=== PATIENT | male | born 1980 | race Caucasian/White ===

== ENCOUNTER 2019-06-22 20:23 | Inpatient (IN) | payer MEDICAID ==
[~2019-06-22] VITALS: Ht 177.8 cm; Wt 83.0 kg
[~2019-06-22 20:23] MED LIST: GABA-531 PO; LEVE500T53 PO
[2019-06-22] MEDS ORDERED: LAMO25TA25 PO (20:57)
[2019-06-22] MEDS ORDERED: MIRT30 PO (20:57)
[2019-06-22] MEDS ORDERED: FLUO-191 PO (20:57)
[2019-06-22 21:31] LABS: BASOPHILS % (AUTO) 0.4 % (0.0-2.0); EOSINOPHILS % (AUTO) 1.4 % (1.0-6.0); HEMATOCRIT 43.8 % (41-53); HEMOGLOBIN 15.5 g/dL (13.5-17.5); LYMPHOCYTES # (AUTO) 2.1 K/uL (1.0-4.8); LYMPHOCYTES % (AUTO) 22.9 % (22.0-44.0); MEAN CORPUSCULAR HEMOGLOBIN 30.5 pg (26.0-34.0); MEAN CORPUSCULAR HGB CONC 35.4 G/dL (31.0-37.0); MEAN CORPUSCULAR VOLUME 86 fL (80-100); MONOCYTES # (AUTO) 0.9 K/uL (0.1-1.0); MONOCYTES % (AUTO) 9.7 % (2.0-9.0); NEUTROPHILS % (AUTO) 65.6 % (40.0-70.0); PLATELET COUNT (AUTO) 337 K/uL (150-450); RED BLOOD CELL COUNT(AUTO) 5.09 MIL/uL (4.50-5.90)
[2019-06-22 21:45] LABS: ANION GAP 13 mmol/L (8-16); CALCIUM, TOTAL 9.7 mg/dL (8.8-10.5); CARBON DIOXIDE 23 mmol/L (22-29); CHLORIDE 105 mmol/L (98-107); CREATININE 1.09 mg/dL (0.60-1.30); GLOMERULAR FILTR. RATE CALC > 60 mL/min (>60); GLUCOSE,RANDOM 127 mg/dL (70-110); POTASSIUM 3.5 mmol/L (3.5-5.1); SODIUM SERUM 141 mmol/L (136-145); UREA NITROGEN, BLOOD 18 mg/dL (7-18)
[2019-06-22 21:50] LABS: ALANINE AMINOTRANSFERASE 31 U/L (12-78); ALBUMIN 4.4 g/dL (3.4-5.0); ALKALINE PHOSPHATASE 115 U/L (46-116); ASPARTATE AMINOTRANSFERASE 27 U/L (15-37); BILIRUBIN,TOTAL 0.7 mg/dL (0.1-1.0); TOTAL PROTEIN, SERUM 7.8 g/dL (6.4-8.2)
[2019-06-22 22:53] LABS: AMPHET/METH SCREEN,URINE POSITIVE (NEGATIVE); BARBITURATE SCREEN, URINE NEGATIVE (NEGATIVE); BENZODIAZEPINES SCREEN,URINE NEGATIVE (NEGATIVE); CANNABINOID SCREEN,URINE NEGATIVE (NEGATIVE); COCAINE SCREEN,URINE NEGATIVE (NEGATIVE); METHADONE SCREEN, URINE NEGATIVE (NEGATIVE); OPIATE SCREEN,URINE NEGATIVE (NEGATIVE)
[2019-06-22 22:55] LABS: PHENCYCLIDINE SCREEN,URINE NEGATIVE (NEGATIVE)
[2019-06-22 23:02] LABS: LITHIUM < 0.20 mmol/L (0.60-1.20)
[2019-06-23] MEDS ORDERED: HALOPERIDOL 5 MG TABLET PO PRN (00:30)
[2019-06-23] MEDS ORDERED: ZOLPIDEM TARTRATE 10 MG TABLET PO PRN (00:30)
[2019-06-23 01:54] VITALS: BP 137/87
[2019-06-23] MEDS ORDERED: PNEUMOCOCCAL VACCINE POLYVALENT 0.5 ML VIAL [PPSV23] IM ONE (03:45)
[2019-06-23] MEDS ORDERED: INFLUENZA VIRUS VACCINE QVS 2019-20 (3YR+)/PF 60 MCG/0.5 ML SYRINGE IM ONE (03:45)
[2019-06-23 08:40] VITALS: BP 106/71
[2019-06-23] MEDS: ARIPiprazole 15 MG TABLET PO SCH (10:48)
[2019-06-23] MEDS: LITHIUM CARBONATE 300 MG CAPSULE PO SCH ×2 (10:48→16:28)
[2019-06-23] MEDS: FLUoxetine HCL 20 MG CAPSULE PO SCH (10:49)
[2019-06-23] MEDS: MIRTAZAPINE 30 MG TABLET PO SCH (10:49)
[2019-06-23] MEDS ORDERED: GuaiFENesin/D-METHORPHAN [SUGAR-FREE] 200-20MG/10 ML SYRUP UDCUP PO PRN (15:45)
[2019-06-23] MEDS ORDERED: ALBUTEROL SULFATE HFA 90 MCG/PUFF 8 GM INHALER IH PRN (15:45)
[2019-06-23] MEDS ORDERED: DOCUSATE SODIUM 100 MG CAPSULE PO PRN (15:45)
[2019-06-23] MEDS ORDERED: ONDANSETRON HCL 4 MG TABLET PO PRN (15:45)
[2019-06-23] MEDS ORDERED: ACETAMINOPHEN 325 MG TABLET PO PRN (15:45)
[2019-06-23] MEDS ORDERED: MAGNESIUM HYDROXIDE SUSPENSION 30 ML UDCUP PO PRN (15:45)
[2019-06-23] MEDS ORDERED: LOPERAMIDE HCL 2 MG CAPSULE PO PRN (15:45)
[2019-06-23] MEDS ORDERED: PETROLATUM,WHITE 28 GM JELLY TP PRN (15:45)
[2019-06-23] MEDS ORDERED: CloNIDine HCL 0.1 MG TABLET PO PRN (15:45)
[2019-06-23] MEDS ORDERED: MAG HYDROX/AL HYDROX/SIMETH ES 30 ML SUSPENSION UDCUP PO PRN (15:45)
[2019-06-23] MEDS ORDERED: NICOTINE 14 MG/24 HOUR PATCH TD PRN (15:45)
[2019-06-23] MEDS ORDERED: IBUPROFEN 400 MG TABLET PO PRN (15:45)
[2019-06-23 16:12] VITALS: BP 102/61
[2019-06-23] MEDS: LORazepam 2 MG TABLET PO PRN (16:28)
[2019-06-23] MEDS: NICOTINE POLACRILEX 2 MG LOZENGE PO PRN (16:33)
[2019-06-24 06:43] VITALS: BP 111/58
[2019-06-24 08:24] VITALS: BP 116/72
[2019-06-24] MEDS: MIRTAZAPINE 30 MG TABLET PO SCH (08:39)
[2019-06-24] MEDS: LITHIUM CARBONATE 300 MG CAPSULE PO SCH ×2 (08:39→16:27)
[2019-06-24] MEDS: ARIPiprazole 15 MG TABLET PO SCH (08:39)
[2019-06-24] MEDS: FLUoxetine HCL 20 MG CAPSULE PO SCH (08:39)
[2019-06-24 09:49] LABS: CHOL/HDL RATIO 5.3 (4.2-7.3)
[2019-06-24 16:20] VITALS: BP 129/52
[2019-06-24] MEDS: LORazepam 2 MG TABLET PO PRN (16:27)
[2019-06-24] MEDS: NICOTINE POLACRILEX 2 MG LOZENGE PO PRN (16:28)
[2019-06-25 06:36] VITALS: BP 126/75
[2019-06-25 08:36] VITALS: BP 129/73
[2019-06-25] MEDS: FLUoxetine HCL 20 MG CAPSULE PO SCH (08:57)
[2019-06-25] MEDS: ARIPiprazole 15 MG TABLET PO SCH (08:57)
[2019-06-25] MEDS: NICOTINE POLACRILEX 2 MG LOZENGE PO PRN ×2 (08:57→17:43)
[2019-06-25] MEDS: LITHIUM CARBONATE 300 MG CAPSULE PO SCH ×2 (08:57→17:43)
[2019-06-25] MEDS: MIRTAZAPINE 30 MG TABLET PO SCH (08:57)
[2019-06-25 16:48] VITALS: BP 112/65
[2019-06-25] MEDS: LORazepam 2 MG TABLET PO PRN (17:43)
[2019-06-26 05:58] VITALS: BP 136/73
[2019-06-26] MEDS: MIRTAZAPINE 30 MG TABLET PO SCH (09:00)
[2019-06-26] MEDS: FLUoxetine HCL 20 MG CAPSULE PO SCH (09:36)
[2019-06-26] MEDS: LITHIUM CARBONATE 300 MG CAPSULE PO SCH ×2 (09:36→16:53)
[2019-06-26] MEDS: ARIPiprazole 15 MG TABLET PO SCH (09:36)
[2019-06-26] MEDS: NICOTINE POLACRILEX 2 MG LOZENGE PO PRN ×2 (09:42→21:32)
[2019-06-26 13:38] VITALS: BP 122/72
[2019-06-26] MEDS: LORazepam 2 MG TABLET PO PRN (13:46)
[2019-06-26 16:22] VITALS: BP 110/64
[2019-06-27 06:10] VITALS: BP 117/77
[2019-06-27 08:00] VITALS: BP 118/75
[2019-06-27] MEDS: FLUoxetine HCL 20 MG CAPSULE PO SCH (09:27)
[2019-06-27] MEDS: MIRTAZAPINE 30 MG TABLET PO SCH (09:28)
[2019-06-27] MEDS: LITHIUM CARBONATE 300 MG CAPSULE PO SCH ×2 (09:28→16:19)
[2019-06-27] MEDS: ARIPiprazole 15 MG TABLET PO SCH (09:28)
[2019-06-27] MEDS: LORazepam 2 MG TABLET PO PRN (14:21)
[2019-06-27] MEDS: NICOTINE POLACRILEX 2 MG LOZENGE PO PRN (14:22)
[2019-06-27 16:00] VITALS: BP 113/70
[2019-06-28 01:09] VITALS: BP 126/76
[2019-06-28 08:01] VITALS: BP 123/77
[2019-06-28] MEDS: ARIPiprazole 15 MG TABLET PO SCH (09:25)
[2019-06-28] MEDS: LITHIUM CARBONATE 300 MG CAPSULE PO SCH ×2 (09:25→17:16)
[2019-06-28] MEDS: FLUoxetine HCL 20 MG CAPSULE PO SCH (09:25)
[2019-06-28] MEDS: NICOTINE POLACRILEX 2 MG LOZENGE PO PRN ×2 (09:45→17:40)
[2019-06-28] MEDS: LORazepam 2 MG TABLET PO PRN (09:48)
[2019-06-28] MEDS ORDERED: LITH300C3 PO (17:33)
[2019-06-28] MEDS ORDERED: ARIP15TA2 PO (17:33)
== END 2019-06-28 18:00 | disposition home or self-care (01) | DRG 750 ==
LOC: EMS 20:24 → B3A 06-23 00:30
PROVIDERS: ADMIT Psychiatry & Neurology Psychiatry; ATTEND Psychiatry & Neurology Psychiatry
DX: F25.0 Schizoaffective disorder, bipolar type (principal); G40.909 Epilepsy, unspecified, not intractable, without status epilepticus; R45.851 Suicidal ideations; F41.0 Panic disorder [episodic paroxysmal anxiety]; I10 Essential (primary) hypertension; Z87.891 Personal history of nicotine dependence; Z91.14 Patient's other noncompliance with medication regimen; Z79.899 Other long term (current) drug therapy
CPT/HCPCS: G0480

== ENCOUNTER 2022-02-08 20:00 | Inpatient (IN) | payer MEDICAID ==
[~2022-02-08] VITALS: Ht 177.8 cm; Wt 97.0 kg
[~2022-02-08 20:00] MED LIST changes: +ARIP15TA27 PO; +FLUO-177 PO; -GABA-531 PO; -LEVE500T53 PO; +LITH300C3 PO; +MIRT30 PO
[2022-02-08 21:37] LABS: BASOPHILS % (AUTO) 0.3 % (0.0-2.0); EOSINOPHILS % (AUTO) 1.6 % (1.0-6.0); HEMOGLOBIN 12.2 g/dL (13.5-17.5); LYMPHOCYTES # (AUTO) 1.3 K/uL (1.0-4.8); LYMPHOCYTES % (AUTO) 16.2 % (22.0-44.0); MEAN CORPUSCULAR HEMOGLOBIN 29.9 pg (26.0-34.0); MEAN CORPUSCULAR HGB CONC 33.8 G/dL (31.0-37.0); MEAN CORPUSCULAR VOLUME 88 fL (80-100); MONOCYTES # (AUTO) 1.2 K/uL (0.1-1.0); NEUTROPHILS # (AUTO) 5.6 K/uL (1.8-7.7); NEUTROPHILS % (AUTO) 66.9 % (40.0-70.0); PLATELET COUNT (AUTO) 257 K/uL (150-450); RED BLOOD CELL COUNT(AUTO) 4.08 MIL/uL (4.50-5.90); RED CELL DISTRIBUTION WIDTH 13.1 % (11.5-14.5)
[2022-02-08 21:53] LABS: ALANINE AMINOTRANSFERASE 83 U/L (12-78); ALBUMIN 3.4 g/dL (3.4-5.0); ALKALINE PHOSPHATASE 92 U/L (46-116); ANION GAP 6 mmol/L (8-16); ASPARTATE AMINOTRANSFERASE 71 U/L (15-37); BILIRUBIN,TOTAL 0.9 mg/dL (0.1-1.0); CALCIUM, TOTAL 8.5 mg/dL (8.8-10.5); CARBON DIOXIDE 28 mmol/L (22-29); CHLORIDE 100 mmol/L (98-107); CREATININE 1.17 mg/dL (0.60-1.30); GLUCOSE,RANDOM 135 mg/dL (70-110); SODIUM SERUM 134 mmol/L (136-145); TOTAL PROTEIN, SERUM 6.6 g/dL (6.4-8.2); UREA NITROGEN, BLOOD 17 mg/dL (7-18)
[2022-02-08 21:54] LABS: GLOMERULAR FILTR. RATE CALC > 60 mL/min (>60); POTASSIUM 2.9 mmol/L (3.5-5.1)
[2022-02-08] MEDS ORDERED: POTASSIUM CHLORIDE 10% 40 MEQ/30 ML LIQUID UDCUP PO ONE ×2 (22:00→22:40)
[2022-02-08] MEDS ORDERED: LORazepam 2 MG TABLET PO PRN (22:45)
[2022-02-08] MEDS ORDERED: ZOLPIDEM TARTRATE 10 MG TABLET PO PRN (22:45)
[2022-02-08] MEDS ORDERED: HALOPERIDOL 5 MG TABLET PO PRN (22:45)
[2022-02-09 00:11] LABS: COVID AG,FIA SOURCE NASOPHARYNGEAL
[2022-02-09 08:28] LABS: APPEARANCE,URINE CLEAR (CLEAR); BILIRUBIN,URINE NEGATIVE (NEGATIVE); GLUCOSE, URINE (UA) NEGATIVE (NEGATIVE); LEUKOCYTE ESTERASE ,URINE NEGATIVE (NEGATIVE); NITRATE,URINE NEGATIVE (NEGATIVE); OCCULT BLOOD,URINE NEGATIVE (NEGATIVE); SPECIFIC GRAVITIY, URINE 1.032 (1.003-1.030)
[2022-02-09 08:33] LABS: AMPHET/METH SCREEN,URINE POSITIVE (NEGATIVE); BARBITURATE SCREEN, URINE NEGATIVE (NEGATIVE); BENZODIAZEPINES SCREEN,URINE NEGATIVE (NEGATIVE); CANNABINOID SCREEN,URINE NEGATIVE (NEGATIVE); COCAINE SCREEN,URINE NEGATIVE (NEGATIVE); METHADONE SCREEN, URINE NEGATIVE (NEGATIVE); OPIATE SCREEN,URINE NEGATIVE (NEGATIVE)
[2022-02-09 08:34] LABS: PHENCYCLIDINE SCREEN,URINE NEGATIVE (NEGATIVE)
[2022-02-09 09:08] LABS: PROTEIN,URINE NEGATIVE (NEGATIVE)
[2022-02-09 22:47] VITALS: BP 110/68
[2022-02-10 07:05] LABS: HEMOGLOBIN A1C 5.3 % (3.8-5.6)
[2022-02-10 07:15] LABS: CHOL/HDL RATIO 4.6 (4.2-7.3); FREE T4 (FREE THYROXINE) 0.96 ng/dL (0.76-1.46); POTASSIUM 3.7 mmol/L (3.5-5.1); THYROID STIMULATING HORMONE 1.63 uIU/mL (0.36-3.74)
[2022-02-10 08:52] VITALS: BP 114/66
[2022-02-10] MEDS: BACITRACIN 28 GM OINTMENT TP SCH ×2 (09:00→16:32)
[2022-02-10] MEDS ORDERED: NICOTINE 14 MG/24 HOUR PATCH TD PRN (09:15)
[2022-02-10] MEDS ORDERED: ONDANSETRON HCL 4 MG TABLET PO PRN (09:15)
[2022-02-10] MEDS ORDERED: GuaiFENesin/D-METHORPHAN [SUGAR-FREE] 200-20MG/10 ML SYRUP UDCUP PO PRN (09:15)
[2022-02-10] MEDS ORDERED: ALBUTEROL SULFATE HFA 90 MCG/PUFF 8 GM INHALER IH PRN (09:15)
[2022-02-10] MEDS ORDERED: IBUPROFEN 400 MG TABLET PO PRN (09:15)
[2022-02-10] MEDS ORDERED: CloNIDine HCL 0.1 MG TABLET PO PRN (09:15)
[2022-02-10] MEDS ORDERED: MAG HYDROX/AL HYDROX/SIMETH ES 30 ML SUSPENSION UDCUP PO PRN (09:15)
[2022-02-10] MEDS ORDERED: PETROLATUM,WHITE 28 GM JELLY TP PRN (09:15)
[2022-02-10] MEDS ORDERED: ACETAMINOPHEN 325 MG TABLET PO PRN (09:15)
[2022-02-10] MEDS ORDERED: MAGNESIUM HYDROXIDE SUSPENSION 30 ML UDCUP PO PRN (09:15)
[2022-02-10] MEDS ORDERED: DOCUSATE SODIUM 100 MG CAPSULE PO PRN (09:15)
[2022-02-10] MEDS ORDERED: LOPERAMIDE HCL 2 MG CAPSULE PO PRN (09:15)
[2022-02-10] MEDS: LITHIUM CARBONATE 300 MG CAPSULE PO SCH ×2 (09:45→16:32)
[2022-02-10] MEDS: FLUoxetine HCL 20 MG CAPSULE PO SCH (09:45)
[2022-02-10] MEDS ORDERED: HydrOXYzine PAMOATE 50 MG CAPSULE PO PRN (09:45)
[2022-02-10 20:35] VITALS: BP 120/65
[2022-02-10] MEDS ORDERED: MIRTAZAPINE 30 MG TABLET PO SCH (21:00)
[2022-02-10] MEDS ORDERED: ARIPiprazole 15 MG TABLET PO SCH (21:00)
[2022-02-11 08:19] VITALS: BP 102/72
[2022-02-11] MEDS: LITHIUM CARBONATE 300 MG CAPSULE PO SCH (09:00)
[2022-02-11] MEDS: BACITRACIN 28 GM OINTMENT TP SCH (09:00)
[2022-02-11] MEDS: FLUoxetine HCL 20 MG CAPSULE PO SCH (09:00)
== END 2022-02-11 15:30 | disposition home or self-care (01) | DRG 750 ==
LOC: EMS 20:00 → B3A 02-09 17:57
PROVIDERS: ADMIT Psychiatry & Neurology Psychiatry; ATTEND Psychiatry & Neurology Psychiatry
DX: F25.9 Schizoaffective disorder, unspecified (principal); G40.909 Epilepsy, unspecified, not intractable, without status epilepticus; R45.851 Suicidal ideations; F15.10 Other stimulant abuse, uncomplicated; F31.9 Bipolar disorder, unspecified; I10 Essential (primary) hypertension; F10.10 Alcohol abuse, uncomplicated; E87.6 Hypokalemia; D64.9 Anemia, unspecified; F41.9 Anxiety disorder, unspecified; Z20.822 Contact with and (suspected) exposure to COVID-19; Z59.00 Homelessness unspecified; Z79.899 Other long term (current) drug therapy; Z87.891 Personal history of nicotine dependence; Z88.8 Allergy status to other drugs, medicaments and biological substances
CPT/HCPCS: 80053; 80061; 81003; 83036; 84132; 84439; 84443; 85025; 99285; G0480

== ENCOUNTER 2022-11-23 18:39 | Emergency (ER) | payer MEDICAID ==
[~2022-11-23] VITALS: Ht 177.8 cm; Wt 81.8 kg
[~2022-11-23 18:39] MED LIST changes: +MIRT-149 PO; -MIRT30 PO
[2022-11-23 20:58] VITALS: BP 132/45; PULSE 64; RESP 20; TEMP 98.3
[2022-11-23] MEDS ORDERED: NITROGLYCERIN 2% (1 GM=INCH) OINTMENT PACKET TP ONE (21:30)
== END 2022-11-23 22:00 | disposition left against medical advice (07) ==
LOC: EMS 18:39
DX: R07.89 Other chest pain (principal); F20.9 Schizophrenia, unspecified; F15.90 Other stimulant use, unspecified, uncomplicated; F31.9 Bipolar disorder, unspecified; F17.210 Nicotine dependence, cigarettes, uncomplicated; Z98.62 Peripheral vascular angioplasty status; Z88.8 Allergy status to other drugs, medicaments and biological substances
CPT/HCPCS: 99283; Z7502

== ENCOUNTER 2022-12-07 09:08 | Inpatient (IN) | payer MEDICAID ==
[~2022-12-07] VITALS: Ht 172.7 cm; Wt 82.1 kg
[2022-12-07] MEDS ORDERED: SODIUM CHLORIDE 0.9% 1,000 ML IV ONE (09:15)
[2022-12-07] MEDS ORDERED: NALOXONE HCL 1 MG/ML 2 ML SYRINGE IVP ONE (09:30)
[2022-12-07 09:31] LABS: BASOPHILS % (AUTO) 0.2 % (0.0-2.0); HEMATOCRIT 40.9 % (41-53); HEMOGLOBIN 13.6 g/dL (13.5-17.5); LYMPHOCYTES # (AUTO) 1.8 K/uL (1.0-4.8); LYMPHOCYTES % (AUTO) 24.6 % (22.0-44.0); MEAN CORPUSCULAR HEMOGLOBIN 28.8 pg (26.0-34.0); MEAN CORPUSCULAR HGB CONC 33.1 G/dL (31.0-37.0); MEAN CORPUSCULAR VOLUME 87 fL (80-100); MONOCYTES # (AUTO) 0.4 K/uL (0.1-1.0); NEUTROPHILS # (AUTO) 4.9 K/uL (1.8-7.7); NEUTROPHILS % (AUTO) 68.2 % (40.0-70.0); PLATELET COUNT (AUTO) 211 K/uL (150-450); RED CELL DISTRIBUTION WIDTH 14.1 % (11.5-14.5)
[2022-12-07 09:31] LABS: GLUCOMETER DEV NAME(LOC) ER.6
[2022-12-07 09:43] LABS: ANION GAP 1 mmol/L (8-16); CALCIUM, TOTAL 7.6 mg/dL (8.8-10.5); CARBON DIOXIDE 26 mmol/L (22-29); CHLORIDE 106 mmol/L (98-107); CREATININE 0.97 mg/dL (0.60-1.30); GLOMERULAR FILTR. RATE CALC > 60 mL/min (>60); GLUCOSE,RANDOM 122 mg/dL (70-110); POTASSIUM 3.8 mmol/L (3.5-5.1); SODIUM SERUM 133 mmol/L (136-145)
[2022-12-07 09:50] LABS: ACETAMINOPHEN 4 mcg/mL (10-30); ALANINE AMINOTRANSFERASE 20 U/L (12-78); ALBUMIN 2.7 g/dL (3.4-5.0); ALKALINE PHOSPHATASE 96 U/L (46-116); ASPARTATE AMINOTRANSFERASE 18 U/L (15-37); BILIRUBIN,TOTAL 0.3 mg/dL (0.1-1.0); SALICYLATE 1.3 mg/dL (2.8-20.0); TOTAL PROTEIN, SERUM 5.5 g/dL (6.4-8.2)
[2022-12-07] MEDS ORDERED: SERT-439 PO (09:56)
[2022-12-07] MEDS ORDERED: METO25XL PO (09:56)
[2022-12-07] MEDS ORDERED: ASPI-1444 PO (09:56)
[2022-12-07] MEDS ORDERED: LAMO-24 PO ×2 (09:56)
[2022-12-07] MEDS ORDERED: LEVE500T20 PO (09:56)
[2022-12-07 12:10] LABS: APPEARANCE,URINE CLEAR (CLEAR); BILIRUBIN,URINE NEGATIVE (NEGATIVE); GLUCOSE, URINE (UA) NEGATIVE (NEGATIVE); KETONES,URINE NEGATIVE (NEGATIVE); LEUKOCYTE ESTERASE ,URINE NEGATIVE (NEGATIVE); NITRATE,URINE NEGATIVE (NEGATIVE); OCCULT BLOOD,URINE NEGATIVE (NEGATIVE); PROTEIN,URINE NEGATIVE (NEGATIVE); SPECIFIC GRAVITIY, URINE 1.003 (1.003-1.030); UROBILINOGEN,URINE <=1.0 mg/dL (<=1.0)
[2022-12-07 12:15] LABS: AMPHET/METH SCREEN,URINE POSITIVE (NEGATIVE); BARBITURATE SCREEN, URINE NEGATIVE (NEGATIVE); BENZODIAZEPINES SCREEN,URINE NEGATIVE (NEGATIVE); CANNABINOID SCREEN,URINE NEGATIVE (NEGATIVE); COCAINE SCREEN,URINE NEGATIVE (NEGATIVE); METHADONE SCREEN, URINE NEGATIVE (NEGATIVE); OPIATE SCREEN,URINE NEGATIVE (NEGATIVE); PHENCYCLIDINE SCREEN,URINE NEGATIVE (NEGATIVE)
[2022-12-07 13:24] LABS: ACETAMINOPHEN < 2 mcg/mL (10-30)
[2022-12-07 13:32] LABS: SALICYLATE 1.8 mg/dL (2.8-20.0)
[2022-12-07 20:21] LABS: COVID AG,FIA SOURCE NASAL SWAB
[2022-12-07] MEDS ORDERED: TUBERCULIN, PURIFIED PROTEIN DERIVATIVE 5 TU/0.1 ML SYRINGE ID ONE (20:45)
[2022-12-07] MEDS ORDERED: PROMETHAZINE HCL 25 MG TABLET PO PRN (20:45)
[2022-12-07] MEDS ORDERED: MAG HYDROX/AL HYDROX/SIMETH ES 30 ML SUSPENSION UDCUP PO PRN (20:45)
[2022-12-07] MEDS ORDERED: HydrOXYzine PAMOATE 50 MG CAPSULE PO PRN (20:45)
[2022-12-07] MEDS ORDERED: MAGNESIUM HYDROXIDE SUSPENSION 30 ML UDCUP PO PRN (20:45)
[2022-12-07] MEDS ORDERED: GuaiFENesin/D-METHORPHAN [SUGAR-FREE] 200-20MG/10 ML SYRUP UDCUP PO PRN (20:45)
[2022-12-07] MEDS ORDERED: LOPERAMIDE HCL 2 MG CAPSULE PO PRN (20:45)
[2022-12-07] MEDS ORDERED: ACETAMINOPHEN 325 MG TABLET PO PRN (20:45)
[2022-12-07] MEDS: GABAPENTIN 300 MG CAPSULE PO SCH (21:00)
[2022-12-07] MEDS: MELATONIN 5 MG TABLET PO SCH (21:00)
[2022-12-07] MEDS ORDERED: PALIPERIDONE PALMITATE 234 MG/1.5 ML SYRINGE IM ONE (21:00)
[2022-12-07] MEDS ORDERED: OLANZapine 5 MG RAPDIS TABLET PO SCH (21:00)
[2022-12-07 22:39] VITALS: RESP 19
[2022-12-07 22:45] VITALS: RESP 19
[2022-12-08 06:16] VITALS: BP 114/82; PULSE 105; RESP 18; TEMP 97.8
[2022-12-08 06:30] LABS: HEMOGLOBIN A1C 5.3 % (3.8-5.6)
[2022-12-08 06:31] LABS: CHOL/HDL RATIO 5.1 (4.2-7.3); FREE T4 (FREE THYROXINE) 0.65 ng/dL (0.76-1.46); THYROID STIMULATING HORMONE 0.66 uIU/mL (0.36-3.74)
[2022-12-08] MEDS: NALTREXONE HCL 50 MG TABLET PO SCH (08:30)
[2022-12-08] MEDS: FOLIC ACID 1 MG TABLET PO SCH (08:30)
[2022-12-08] MEDS: MULTIVITAMINS WITH MINERALS, THERAPEUTIC TABLET PO SCH (08:30)
[2022-12-08] MEDS: GABAPENTIN 300 MG CAPSULE PO SCH ×4 (08:30→21:29)
[2022-12-08] MEDS: FLUoxetine HCL 20 MG CAPSULE PO SCH (08:30)
[2022-12-08] MEDS: THIAMINE 100 MG TABLET PO SCH ×2 (08:30→17:35)
[2022-12-08] MEDS: OMEGA-3/DHA/EPA/FISH OIL 1,000 MG CAPSULE PO SCH (09:00)
[2022-12-08 09:30] VITALS: BP 126/69; PULSE 105; RESP 18; TEMP 97.7; O2SAT 98
[2022-12-08] MEDS: MELATONIN 5 MG TABLET PO SCH (21:28)
[2022-12-08] MEDS: ZOLPIDEM TARTRATE 10 MG TABLET PO PRN (21:29)
[2022-12-08] MEDS: LORazepam 2 MG TABLET PO PRN (21:29)
[2022-12-08] MEDS: OLANZapine 5 MG RAPDIS TABLET PO PRN (21:29)
[2022-12-08 21:44] VITALS: RESP 18
[2022-12-09 09:10] VITALS: BP 124/86; PULSE 96; RESP 18; TEMP 97; O2SAT 97
[2022-12-09] MEDS: THIAMINE 100 MG TABLET PO SCH ×2 (09:10→17:38)
[2022-12-09] MEDS: FOLIC ACID 1 MG TABLET PO SCH (09:10)
[2022-12-09] MEDS: MULTIVITAMINS WITH MINERALS, THERAPEUTIC TABLET PO SCH (09:10)
[2022-12-09] MEDS: NALTREXONE HCL 50 MG TABLET PO SCH (09:10)
[2022-12-09] MEDS: OMEGA-3/DHA/EPA/FISH OIL 1,000 MG CAPSULE PO SCH (09:10)
[2022-12-09] MEDS: GABAPENTIN 300 MG CAPSULE PO SCH ×4 (09:10→21:15)
[2022-12-09] MEDS: FLUoxetine HCL 20 MG CAPSULE PO SCH (09:10)
[2022-12-09 10:10] VITALS: BP 128/84; PULSE 90; RESP 18; TEMP 96.8; TEMP 97.1
[2022-12-09 10:54] VITALS: BP 124/90; PULSE 96; RESP 19; TEMP 96.8; O2SAT 97
[2022-12-09 20:52] VITALS: BP 122/81; PULSE 89; RESP 18; TEMP 97.5
[2022-12-09] MEDS: LORazepam 2 MG TABLET PO PRN (21:16)
[2022-12-09] MEDS: MELATONIN 5 MG TABLET PO SCH (21:16)
[2022-12-09] MEDS: ZOLPIDEM TARTRATE 10 MG TABLET PO PRN (21:40)
[2022-12-10] MEDS: GABAPENTIN 300 MG CAPSULE PO SCH ×4 (08:24→20:01)
[2022-12-10] MEDS: NALTREXONE HCL 50 MG TABLET PO SCH (08:24)
[2022-12-10] MEDS: OMEGA-3/DHA/EPA/FISH OIL 1,000 MG CAPSULE PO SCH (08:24)
[2022-12-10] MEDS: THIAMINE 100 MG TABLET PO SCH ×2 (08:24→16:55)
[2022-12-10] MEDS: FOLIC ACID 1 MG TABLET PO SCH (08:25)
[2022-12-10] MEDS: FLUoxetine HCL 20 MG CAPSULE PO SCH (08:25)
[2022-12-10] MEDS: MULTIVITAMINS WITH MINERALS, THERAPEUTIC TABLET PO SCH (08:25)
[2022-12-10 08:28] VITALS: BP 121/51; PULSE 75; RESP 17; TEMP 97.9; O2SAT 97
[2022-12-10] MEDS: MELATONIN 5 MG TABLET PO SCH (20:01)
[2022-12-10] MEDS: ZOLPIDEM TARTRATE 10 MG TABLET PO PRN (21:19)
[2022-12-10 21:33] VITALS: BP 123/77; PULSE 82; RESP 18; TEMP 97.6; O2SAT 98
[2022-12-11 08:15] VITALS: BP 106/78; PULSE 91; RESP 18; TEMP 97.4; O2SAT 100
[2022-12-11] MEDS ORDERED: PALIPERIDONE PALMITATE 156 MG/ML SYRINGE IM ONE (09:00)
[2022-12-11] MEDS: OMEGA-3/DHA/EPA/FISH OIL 1,000 MG CAPSULE PO SCH (09:00)
[2022-12-11] MEDS: FLUoxetine HCL 20 MG CAPSULE PO SCH (09:27)
[2022-12-11] MEDS: NALTREXONE HCL 50 MG TABLET PO SCH (09:27)
[2022-12-11] MEDS: MULTIVITAMINS WITH MINERALS, THERAPEUTIC TABLET PO SCH (09:27)
[2022-12-11] MEDS: FOLIC ACID 1 MG TABLET PO SCH (09:27)
[2022-12-11] MEDS: GABAPENTIN 300 MG CAPSULE PO SCH ×4 (09:27→20:51)
[2022-12-11] MEDS: THIAMINE 100 MG TABLET PO SCH ×2 (09:27→16:09)
[2022-12-11] MEDS: LORazepam 2 MG TABLET PO PRN (15:54)
[2022-12-11 20:41] VITALS: BP 110/68; PULSE 77; RESP 18; TEMP 97.9; O2SAT 98
[2022-12-11] MEDS: MELATONIN 5 MG TABLET PO SCH (20:51)
[2022-12-12] MEDS: OMEGA-3/DHA/EPA/FISH OIL 1,000 MG CAPSULE PO SCH (08:35)
[2022-12-12] MEDS: GABAPENTIN 300 MG CAPSULE PO SCH ×4 (08:38→21:31)
[2022-12-12] MEDS: THIAMINE 100 MG TABLET PO SCH ×2 (08:38→16:09)
[2022-12-12] MEDS: FLUoxetine HCL 20 MG CAPSULE PO SCH (08:38)
[2022-12-12] MEDS: MULTIVITAMINS WITH MINERALS, THERAPEUTIC TABLET PO SCH (08:38)
[2022-12-12] MEDS: FOLIC ACID 1 MG TABLET PO SCH (08:38)
[2022-12-12] MEDS: NALTREXONE HCL 50 MG TABLET PO SCH (08:39)
[2022-12-12 08:57] VITALS: BP 143/61; PULSE 69; RESP 18; TEMP 97; O2SAT 98
[2022-12-12] MEDS: LORazepam 2 MG TABLET PO PRN (16:30)
[2022-12-12] MEDS: MELATONIN 5 MG TABLET PO SCH (21:30)
[2022-12-12] MEDS: OLANZapine 5 MG RAPDIS TABLET PO PRN (21:31)
[2022-12-12 22:19] VITALS: BP 101/74; PULSE 80; RESP 18; TEMP 97.8; O2SAT 97
[2022-12-13 08:30] VITALS: BP 139/77; PULSE 90; RESP 18; TEMP 97.5; O2SAT 98
[2022-12-13] MEDS: MULTIVITAMINS WITH MINERALS, THERAPEUTIC TABLET PO SCH (08:36)
[2022-12-13] MEDS: OMEGA-3/DHA/EPA/FISH OIL 1,000 MG CAPSULE PO SCH ×2 (08:36→08:53)
[2022-12-13] MEDS: GABAPENTIN 300 MG CAPSULE PO SCH ×4 (08:36→20:59)
[2022-12-13] MEDS: FOLIC ACID 1 MG TABLET PO SCH (08:36)
[2022-12-13] MEDS: NALTREXONE HCL 50 MG TABLET PO SCH (08:36)
[2022-12-13] MEDS: THIAMINE 100 MG TABLET PO SCH ×2 (08:36→16:30)
[2022-12-13] MEDS: FLUoxetine HCL 20 MG CAPSULE PO SCH (08:36)
[2022-12-13] MEDS: OLANZapine 5 MG RAPDIS TABLET PO PRN ×2 (16:13→20:59)
[2022-12-13] MEDS: LORazepam 2 MG TABLET PO PRN (20:59)
[2022-12-13] MEDS: MELATONIN 5 MG TABLET PO SCH (20:59)
[2022-12-13] MEDS: ZOLPIDEM TARTRATE 10 MG TABLET PO PRN (20:59)
[2022-12-14] MEDS: OMEGA-3/DHA/EPA/FISH OIL 1,000 MG CAPSULE PO SCH (09:00)
[2022-12-14 09:17] VITALS: BP 132/81; PULSE 80; RESP 18; TEMP 97.9; O2SAT 97
[2022-12-14] MEDS: THIAMINE 100 MG TABLET PO SCH ×2 (09:37→17:40)
[2022-12-14] MEDS: MULTIVITAMINS WITH MINERALS, THERAPEUTIC TABLET PO SCH (09:37)
[2022-12-14] MEDS: FOLIC ACID 1 MG TABLET PO SCH (09:37)
[2022-12-14] MEDS: FLUoxetine HCL 20 MG CAPSULE PO SCH (09:37)
[2022-12-14] MEDS: GABAPENTIN 300 MG CAPSULE PO SCH ×4 (09:37→20:56)
[2022-12-14] MEDS: NALTREXONE HCL 50 MG TABLET PO SCH (09:37)
[2022-12-14] MEDS: LORazepam 2 MG TABLET PO PRN (15:45)
[2022-12-14] MEDS: OLANZapine 5 MG RAPDIS TABLET PO PRN (15:45)
[2022-12-14] MEDS ORDERED: MELA5TAB40 PO (16:52)
[2022-12-14] MEDS ORDERED: GABA-1181 PO (16:52)
[2022-12-14] MEDS ORDERED: NALT50TA PO (16:52)
[2022-12-14] MEDS ORDERED: PALI117D IM (16:52)
[2022-12-14] MEDS ORDERED: VARE1TAB25 PO (16:52)
[2022-12-14] MEDS ORDERED: OMEG-135 PO (16:52)
[2022-12-14] MEDS ORDERED: FLUO20CA36 PO (16:52)
[2022-12-14] MEDS: MELATONIN 5 MG TABLET PO SCH (20:56)
[2022-12-14 22:20] VITALS: BP 103/55; PULSE 79; RESP 17; TEMP 97.4; O2SAT 96
[2022-12-15] MEDS: FLUoxetine HCL 20 MG CAPSULE PO SCH (08:13)
[2022-12-15] MEDS: GABAPENTIN 300 MG CAPSULE PO SCH ×4 (08:13→21:16)
[2022-12-15] MEDS: MULTIVITAMINS WITH MINERALS, THERAPEUTIC TABLET PO SCH (08:13)
[2022-12-15] MEDS: THIAMINE 100 MG TABLET PO SCH ×2 (08:13→17:42)
[2022-12-15] MEDS: FOLIC ACID 1 MG TABLET PO SCH (08:13)
[2022-12-15] MEDS: NALTREXONE HCL 50 MG TABLET PO SCH (08:13)
[2022-12-15] MEDS: OMEGA-3/DHA/EPA/FISH OIL 1,000 MG CAPSULE PO SCH (09:00)
[2022-12-15 09:02] VITALS: BP 115/74; PULSE 109; RESP 18; TEMP 97.4
[2022-12-15] MEDS: LORazepam 2 MG TABLET PO PRN (14:35)
[2022-12-15] MEDS: OLANZapine 5 MG RAPDIS TABLET PO PRN (14:35)
[2022-12-15] MEDS: MELATONIN 5 MG TABLET PO SCH (21:16)
[2022-12-15 21:43] VITALS: BP 117/64; PULSE 79; RESP 18; TEMP 97.6
[2022-12-16] MEDS: NALTREXONE HCL 50 MG TABLET PO SCH (08:43)
[2022-12-16] MEDS: THIAMINE 100 MG TABLET PO SCH (08:43)
[2022-12-16] MEDS: FOLIC ACID 1 MG TABLET PO SCH (08:43)
[2022-12-16] MEDS: FLUoxetine HCL 20 MG CAPSULE PO SCH (08:43)
[2022-12-16] MEDS: GABAPENTIN 300 MG CAPSULE PO SCH ×2 (08:43→13:39)
[2022-12-16] MEDS: MULTIVITAMINS WITH MINERALS, THERAPEUTIC TABLET PO SCH (08:43)
[2022-12-16] MEDS: OMEGA-3/DHA/EPA/FISH OIL 1,000 MG CAPSULE PO SCH (08:46)
[2022-12-16 08:53] VITALS: BP 134/75; PULSE 78; RESP 18; TEMP 97.9
== END 2022-12-16 15:10 | disposition home or self-care (01) | DRG 750 ==
LOC: EMS 09:08 → 3EI 15:47
PROVIDERS: ADMIT Psychiatry & Neurology Psychiatry; ATTEND Psychiatry & Neurology Psychiatry
DX: F25.1 Schizoaffective disorder, depressive type (principal); E44.0 Moderate protein-calorie malnutrition; G40.909 Epilepsy, unspecified, not intractable, without status epilepticus; Z91.148 Patient's other noncompliance with medication regimen for other reason; F15.10 Other stimulant abuse, uncomplicated; Z20.822 Contact with and (suspected) exposure to COVID-19; T43.592A Poisoning by other antipsychotics and neuroleptics, intentional self-harm, initial encounter; F17.210 Nicotine dependence, cigarettes, uncomplicated; I10 Essential (primary) hypertension; J44.9 Chronic obstructive pulmonary disease, unspecified; F31.9 Bipolar disorder, unspecified; Y92.89 Other specified places as the place of occurrence of the external cause; Z59.00 Homelessness unspecified; Z68.27 Body mass index [BMI] 27.0-27.9, adult; Z88.8 Allergy status to other drugs, medicaments and biological substances
CPT/HCPCS: 70450; 80053; 80061; 80307; 81003; 82962; 83036; 84439; 84443; 85025; 86592; 93005; 99291; G0480; G0481; J2310; Q9967

== ENCOUNTER 2022-12-19 10:06 | Inpatient (IN) | payer MEDICAID ==
[~2022-12-19] VITALS: Ht 177.8 cm; Wt 85.3 kg
[~2022-12-19 10:06] MED LIST changes: -ARIP15TA27 PO; -FLUO-177 PO; +FLUO20CA36 PO; +GABA-1181 PO; -LITH300C3 PO; +MELA5TAB40 PO; -MIRT-149 PO; +NALT50TA PO; +OMEG-135 PO; +PALI117D IM; +VARE1TAB25 PO
[2022-12-19 12:00] LABS: BASOPHILS % (AUTO) 0.1 % (0.0-2.0); EOSINOPHILS % (AUTO) 1.6 % (1.0-6.0); HEMATOCRIT 46.1 % (41-53); HEMOGLOBIN 15.5 g/dL (13.5-17.5); LYMPHOCYTES # (AUTO) 1.7 K/uL (1.0-4.8); LYMPHOCYTES % (AUTO) 19.9 % (22.0-44.0); MEAN CORPUSCULAR HEMOGLOBIN 29.1 pg (26.0-34.0); MEAN CORPUSCULAR HGB CONC 33.6 G/dL (31.0-37.0); MEAN CORPUSCULAR VOLUME 87 fL (80-100); MONOCYTES # (AUTO) 0.6 K/uL (0.1-1.0); MONOCYTES % (AUTO) 7.5 % (2.0-9.0); NEUTROPHILS # (AUTO) 6.1 K/uL (1.8-7.7); NEUTROPHILS % (AUTO) 70.9 % (40.0-70.0); PLATELET COUNT (AUTO) 289 K/uL (150-450); RED BLOOD CELL COUNT(AUTO) 5.32 MIL/uL (4.50-5.90); RED CELL DISTRIBUTION WIDTH 14.5 % (11.5-14.5)
[2022-12-19 12:09] LABS: ANION GAP 12 mmol/L (8-16); CALCIUM, TOTAL 8.7 mg/dL (8.8-10.5); CARBON DIOXIDE 27 mmol/L (22-29); CHLORIDE 102 mmol/L (98-107); CREATININE 0.92 mg/dL (0.60-1.30); GLOMERULAR FILTR. RATE CALC > 60 mL/min (>60); GLUCOSE,RANDOM 92 mg/dL (70-110); SODIUM SERUM 141 mmol/L (136-145)
[2022-12-19 12:21] LABS: ALANINE AMINOTRANSFERASE 32 U/L (12-78); ALBUMIN 3.4 g/dL (3.4-5.0); ALKALINE PHOSPHATASE 125 U/L (46-116); ASPARTATE AMINOTRANSFERASE 25 U/L (15-37); BILIRUBIN,TOTAL 0.4 mg/dL (0.1-1.0)
[2022-12-19 12:33] LABS: COVID AG,FIA SOURCE NASOPHARYNGEAL
[2022-12-19] MEDS ORDERED: OLANZapine 5 MG RAPDIS TABLET PO PRN (13:15)
[2022-12-19 16:00] LABS: APPEARANCE,URINE CLEAR (CLEAR); BILIRUBIN,URINE NEGATIVE (NEGATIVE); GLUCOSE, URINE (UA) NEGATIVE (NEGATIVE); KETONES,URINE NEGATIVE (NEGATIVE); LEUKOCYTE ESTERASE ,URINE NEGATIVE (NEGATIVE); NITRATE,URINE NEGATIVE (NEGATIVE); OCCULT BLOOD,URINE NEGATIVE (NEGATIVE); PROTEIN,URINE NEGATIVE (NEGATIVE); UROBILINOGEN,URINE <=1.0 mg/dL (<=1.0)
[2022-12-19 16:46] LABS: AMPHET/METH SCREEN,URINE POSITIVE (NEGATIVE); BARBITURATE SCREEN, URINE NEGATIVE (NEGATIVE); BENZODIAZEPINES SCREEN,URINE NEGATIVE (NEGATIVE); CANNABINOID SCREEN,URINE NEGATIVE (NEGATIVE); COCAINE SCREEN,URINE NEGATIVE (NEGATIVE); METHADONE SCREEN, URINE NEGATIVE (NEGATIVE); OPIATE SCREEN,URINE NEGATIVE (NEGATIVE); PHENCYCLIDINE SCREEN,URINE NEGATIVE (NEGATIVE)
[2022-12-20] MEDS: LORazepam 2 MG TABLET PO PRN (15:37)
[2022-12-20] MEDS ORDERED: ACETAMINOPHEN 325 MG TABLET PO PRN (19:45)
[2022-12-20] MEDS ORDERED: IBUPROFEN 600 MG TABLET PO PRN (19:45)
[2022-12-20 20:58] VITALS: BP 115/66; PULSE 69; RESP 19; TEMP 98.2; O2SAT 100
[2022-12-20] MEDS: GABAPENTIN 300 MG CAPSULE PO SCH (21:00)
[2022-12-21 08:59] VITALS: BP 113/68; PULSE 70; RESP 18; TEMP 98.3; O2SAT 98
[2022-12-21] MEDS: GABAPENTIN 300 MG CAPSULE PO SCH ×4 (09:35→20:35)
[2022-12-21] MEDS: NICOTINE POLACRILEX 2 MG LOZENGE PO PRN (09:52)
[2022-12-21] MEDS: ZOLPIDEM TARTRATE 10 MG TABLET PO PRN (20:40)
[2022-12-21 20:45] VITALS: BP 112/68; PULSE 93; RESP 19; TEMP 97.6; O2SAT 95
[2022-12-22 08:29] VITALS: BP 111/57; PULSE 66; RESP 18; TEMP 98; O2SAT 98
[2022-12-22] MEDS: GABAPENTIN 300 MG CAPSULE PO SCH ×4 (08:32→20:26)
[2022-12-22] MEDS: LORazepam 2 MG TABLET PO PRN (09:33)
[2022-12-22] MEDS: NICOTINE POLACRILEX 2 MG LOZENGE PO PRN (09:33)
[2022-12-22] MEDS ORDERED: HydrOXYzine PAMOATE 50 MG CAPSULE PO PRN (16:15)
[2022-12-22] MEDS ORDERED: GuaiFENesin/D-METHORPHAN [SUGAR-FREE] 200-20MG/10 ML SYRUP UDCUP PO PRN (16:15)
[2022-12-22] MEDS ORDERED: MAGNESIUM HYDROXIDE SUSPENSION 30 ML UDCUP PO PRN (16:15)
[2022-12-22] MEDS ORDERED: CYANOCOBALAMIN 1,000 MCG/ML VIAL IM ONE (16:15)
[2022-12-22] MEDS ORDERED: MAG HYDROX/AL HYDROX/SIMETH ES 30 ML SUSPENSION UDCUP PO PRN (16:15)
[2022-12-22] MEDS ORDERED: PROMETHAZINE HCL 25 MG TABLET PO PRN (16:15)
[2022-12-22] MEDS ORDERED: QUEtiapine FUMARATE 100 MG TABLET PO PRN (16:15)
[2022-12-22] MEDS ORDERED: LOPERAMIDE HCL 2 MG CAPSULE PO PRN (16:15)
[2022-12-22] MEDS: THIAMINE 100 MG TABLET PO SCH (16:42)
[2022-12-22] MEDS: MUPIROCIN CALCIUM 2% 22 GM OINTMENT NASAL SCH (16:43)
[2022-12-22 20:16] VITALS: BP 101/62; PULSE 62; RESP 18; TEMP 97.8; O2SAT 96
[2022-12-22] MEDS: MIRTAZAPINE 15 MG TABLET PO SCH (20:26)
[2022-12-22] MEDS ORDERED: QUEtiapine FUMARATE 100 MG TABLET PO SCH (21:00)
[2022-12-23 08:26] VITALS: BP 106/66; PULSE 67; RESP 19; TEMP 97.7; O2SAT 98
[2022-12-23] MEDS: THIAMINE 100 MG TABLET PO SCH ×2 (08:36→17:07)
[2022-12-23] MEDS: GABAPENTIN 300 MG CAPSULE PO SCH ×4 (08:36→20:59)
[2022-12-23] MEDS: MULTIVITAMINS WITH MINERALS, THERAPEUTIC TABLET PO SCH (08:36)
[2022-12-23] MEDS: FOLIC ACID 1 MG TABLET PO SCH (08:37)
[2022-12-23] MEDS: MUPIROCIN CALCIUM 2% 22 GM OINTMENT NASAL SCH ×2 (08:38→17:08)
[2022-12-23 20:45] VITALS: BP 106/88; PULSE 94; RESP 19; TEMP 98; O2SAT 95
[2022-12-23] MEDS: MIRTAZAPINE 15 MG TABLET PO SCH (20:58)
[2022-12-23] MEDS ORDERED: QUEtiapine FUMARATE 300 MG TABLET PO SCH (21:00)
[2022-12-24 08:27] VITALS: BP 109/72; PULSE 78; RESP 17; TEMP 97.8; O2SAT 96
[2022-12-24] MEDS: MULTIVITAMINS WITH MINERALS, THERAPEUTIC TABLET PO SCH (09:22)
[2022-12-24] MEDS: GABAPENTIN 300 MG CAPSULE PO SCH ×4 (09:22→20:25)
[2022-12-24] MEDS: FOLIC ACID 1 MG TABLET PO SCH (09:22)
[2022-12-24] MEDS: THIAMINE 100 MG TABLET PO SCH ×2 (09:22→17:00)
[2022-12-24] MEDS: MUPIROCIN CALCIUM 2% 22 GM OINTMENT NASAL SCH ×2 (09:24→17:00)
[2022-12-24] MEDS: LORazepam 2 MG TABLET PO PRN (17:04)
[2022-12-24 20:18] VITALS: BP 101/70; PULSE 79; RESP 18; TEMP 98; O2SAT 96
[2022-12-24] MEDS: MIRTAZAPINE 15 MG TABLET PO SCH (20:25)
[2022-12-24] MEDS ORDERED: QUEtiapine FUMARATE 200 MG TABLET PO SCH (21:00)
[2022-12-25] MEDS: LORazepam 2 MG TABLET PO PRN ×2 (01:02→17:31)
[2022-12-25 08:26] VITALS: BP 109/66; PULSE 58; RESP 18; TEMP 97.9; O2SAT 97
[2022-12-25] MEDS: GABAPENTIN 300 MG CAPSULE PO SCH ×4 (08:54→20:27)
[2022-12-25] MEDS: THIAMINE 100 MG TABLET PO SCH ×2 (08:54→16:25)
[2022-12-25] MEDS: MULTIVITAMINS WITH MINERALS, THERAPEUTIC TABLET PO SCH (08:54)
[2022-12-25] MEDS: FOLIC ACID 1 MG TABLET PO SCH (08:54)
[2022-12-25] MEDS: MUPIROCIN CALCIUM 2% 22 GM OINTMENT NASAL SCH ×2 (08:55→16:27)
[2022-12-25] MEDS: NICOTINE POLACRILEX 2 MG LOZENGE PO PRN (17:31)
[2022-12-25] MEDS: QUEtiapine FUMARATE 200 MG TABLET PO SCH (20:27)
[2022-12-25] MEDS: MIRTAZAPINE 15 MG TABLET PO SCH (20:27)
[2022-12-25 21:16] VITALS: BP 108/59; PULSE 64; RESP 18; TEMP 97.6; O2SAT 100
[2022-12-26 08:12] VITALS: BP 103/62; PULSE 66; RESP 18; TEMP 97.6; O2SAT 97
[2022-12-26] MEDS: MULTIVITAMINS WITH MINERALS, THERAPEUTIC TABLET PO SCH (08:26)
[2022-12-26] MEDS: GABAPENTIN 300 MG CAPSULE PO SCH ×4 (08:26→20:10)
[2022-12-26] MEDS: THIAMINE 100 MG TABLET PO SCH ×2 (08:26→16:43)
[2022-12-26] MEDS: FOLIC ACID 1 MG TABLET PO SCH (08:26)
[2022-12-26] MEDS: MUPIROCIN CALCIUM 2% 22 GM OINTMENT NASAL SCH ×2 (08:28→16:44)
[2022-12-26] MEDS: LORazepam 2 MG TABLET PO PRN (10:39)
[2022-12-26] MEDS: QUEtiapine FUMARATE 200 MG TABLET PO SCH (20:10)
[2022-12-26] MEDS: MIRTAZAPINE 15 MG TABLET PO SCH (20:10)
[2022-12-26 20:22] VITALS: BP 121/71; PULSE 94; RESP 19; TEMP 97.8; O2SAT 96
[2022-12-27] MEDS: GABAPENTIN 300 MG CAPSULE PO SCH ×4 (08:07→20:15)
[2022-12-27] MEDS: MULTIVITAMINS WITH MINERALS, THERAPEUTIC TABLET PO SCH (08:07)
[2022-12-27] MEDS: FOLIC ACID 1 MG TABLET PO SCH (08:07)
[2022-12-27] MEDS: THIAMINE 100 MG TABLET PO SCH ×2 (08:07→16:36)
[2022-12-27] MEDS: MUPIROCIN CALCIUM 2% 22 GM OINTMENT NASAL SCH ×2 (08:08→16:37)
[2022-12-27 08:26] VITALS: BP 105/63; PULSE 65; RESP 18; TEMP 97.8; O2SAT 98
[2022-12-27 20:11] VITALS: BP 125/80; PULSE 75; RESP 18; TEMP 97.9; O2SAT 97
[2022-12-27] MEDS: MIRTAZAPINE 15 MG TABLET PO SCH (20:15)
[2022-12-27] MEDS: QUEtiapine FUMARATE 200 MG TABLET PO SCH (20:16)
[2022-12-28 08:49] VITALS: BP 119/70; PULSE 85; RESP 17; TEMP 98.5; O2SAT 97
[2022-12-28] MEDS: MULTIVITAMINS WITH MINERALS, THERAPEUTIC TABLET PO SCH (09:06)
[2022-12-28] MEDS: GABAPENTIN 300 MG CAPSULE PO SCH ×4 (09:06→20:43)
[2022-12-28] MEDS: THIAMINE 100 MG TABLET PO SCH ×2 (09:06→16:19)
[2022-12-28] MEDS: FOLIC ACID 1 MG TABLET PO SCH (09:06)
[2022-12-28] MEDS: LORazepam 2 MG TABLET PO PRN (10:37)
[2022-12-28] MEDS: NICOTINE POLACRILEX 2 MG LOZENGE PO PRN (10:40)
[2022-12-28 20:43] VITALS: BP 119/76; PULSE 94; RESP 19; TEMP 98; O2SAT 95
[2022-12-28] MEDS: QUEtiapine FUMARATE 200 MG TABLET PO SCH ×2 (20:43→21:00)
[2022-12-28] MEDS: MIRTAZAPINE 15 MG TABLET PO SCH (20:43)
[2022-12-28] MEDS: ZOLPIDEM TARTRATE 10 MG TABLET PO PRN (21:09)
[2022-12-29 08:28] VITALS: BP 107/63; PULSE 69; RESP 18; TEMP 97.9; O2SAT 98
[2022-12-29] MEDS: THIAMINE 100 MG TABLET PO SCH ×2 (08:46→16:03)
[2022-12-29] MEDS: FOLIC ACID 1 MG TABLET PO SCH (08:46)
[2022-12-29] MEDS: GABAPENTIN 300 MG CAPSULE PO SCH ×4 (08:46→20:36)
[2022-12-29] MEDS: MULTIVITAMINS WITH MINERALS, THERAPEUTIC TABLET PO SCH (08:46)
[2022-12-29] MEDS: LORazepam 2 MG TABLET PO PRN ×2 (08:52→14:47)
[2022-12-29 20:06] VITALS: BP 114/77; PULSE 90; RESP 19; TEMP 97.7; O2SAT 96
[2022-12-29] MEDS: MIRTAZAPINE 15 MG TABLET PO SCH (20:36)
[2022-12-29] MEDS: QUEtiapine FUMARATE 200 MG TABLET PO SCH (20:38)
[2022-12-30] MEDS: LORazepam 2 MG TABLET PO PRN ×2 (04:17→11:12)
[2022-12-30 08:07] VITALS: BP 112/61; PULSE 61; RESP 19; TEMP 98.2; O2SAT 96
[2022-12-30] MEDS: FOLIC ACID 1 MG TABLET PO SCH (08:55)
[2022-12-30] MEDS: MULTIVITAMINS WITH MINERALS, THERAPEUTIC TABLET PO SCH (08:55)
[2022-12-30] MEDS: THIAMINE 100 MG TABLET PO SCH (08:55)
[2022-12-30] MEDS: GABAPENTIN 300 MG CAPSULE PO SCH ×2 (08:55→12:57)
[2022-12-30] MEDS ORDERED: MELA5TAB40 PO (13:44)
[2022-12-30] MEDS ORDERED: GABA-1181 PO (13:44)
[2022-12-30] MEDS ORDERED: QUET200T30 PO (13:44)
[2022-12-30] MEDS ORDERED: NALT50TA PO (13:44)
[2022-12-30] MEDS ORDERED: MIRT-89 PO (13:44)
[2022-12-30 13:57] LABS: COVID AG,FIA SOURCE NASAL SWAB
== END 2022-12-30 15:45 | disposition home or self-care (01) | DRG 750 ==
LOC: EMS 10:08 → B2S 12-20 15:10
PROVIDERS: ADMIT Psychiatry & Neurology Psychiatry; ATTEND Psychiatry & Neurology Psychiatry
DX: F25.1 Schizoaffective disorder, depressive type (principal); G40.409 Other generalized epilepsy and epileptic syndromes, not intractable, without status epilepticus; R45.851 Suicidal ideations; J44.9 Chronic obstructive pulmonary disease, unspecified; F31.9 Bipolar disorder, unspecified; F43.10 Post-traumatic stress disorder, unspecified; F41.9 Anxiety disorder, unspecified; Z20.822 Contact with and (suspected) exposure to COVID-19; I10 Essential (primary) hypertension; F17.210 Nicotine dependence, cigarettes, uncomplicated; Z79.899 Other long term (current) drug therapy; Z88.8 Allergy status to other drugs, medicaments and biological substances
CPT/HCPCS: 80053; 80307; 81003; 85025; 87081; 99285; G0480; J3420; Q9967